=== PATIENT | male | born 1945 | race African-American/Black ===

== ENCOUNTER 2017-06-06 19:49 | Inpatient (IN) | payer BC ==
[~2017-06-06] VITALS: Ht 185.4 cm; Wt 84.1 kg
--- NOTE | ~2017-06-06 | CN ---
Consultation Report [facility] [address] [place]. [address] NAME: HUMBERTO ELLIS JR : 43 STATUS : ADM Ivan PAT#: [id number] AGE: 71 ADM/REG DATE : 06/06/17 MR#: [id number] REPORT SERV DATE: 06/07/17 DICTATED BY: DATE: REPORT STATUS : Draft TRANSCRIBED BY: MODL DATE: 06/07/17 NEUROLOGY CONSULTATION DATE OF CONSULTATION: 06/07/2017 REASON FOR CONSULTATION: Gait abnormality HOSPITALIST: DONNELL Park HISTORY OF PRESENT ILLNESS: The patient is a 71-year-old male, who had a recent fall, where he fractured the fifth and sixth left rib from falling. He has a history of alcoholism and pituitary mass. His most recent fall was attributed to his alcohol intoxication. Apparently, he fell and fractured his left 6th and 7th rib. He was brought to [facility]'s emergency department where he was evaluated and treated. He was sent home after the evaluation. The patient came back to the hospital because of extreme fatigue and weakness. He states that his legs tend to give out and he cannot stand backup. When questioned more extensively, the patient mentions that he has been told he had Parkinson's disease. According to the patient, he has never been placed on medication therapy. He does have significant bilateral tremor, but states it is not disabling. What is most disabling for him is his fatigue, weakness, and inability to ambulate. Over the last five days, the patient has become so weak that he cannot get around. PAST MEDICAL HISTORY: Alcohol abuse, pituitary tumor, chronic pancreatitis, diabetes mellitus type 2, prostate cancer, BPH, GERD, orthostasis, GI bleed from AVM. PAST SURGICAL HISTORY: None. HOME MEDICATION LIST: Hydrocodone 10/325 mg one tab every four hours p.r.n. pain, NovoLog insulin per sliding scale, Lantus insulin 15 units subcu twice a day, Prilosec 40 mg daily, Flomax 0.4 mg every afternoon, Maxzide 37.5/25 mg daily. ALLERGIES: NONE. SOCIAL HISTORY: The patient is . He has three grown children. He is retired from the [employer]. He worked in the [employer] department for 33 years. He does not smoke. He claims that he will occasionally drink alcohol and denies use of recreational drugs. FAMILY HISTORY: The patient's mother from diabetes. His father from hypertension and throat cancer. He has one sister and two brothers who have "passed." REVIEW OF SYSTEMS: Please refer to HPI. Consultation Report [facility] [address] [place]. [address] NAME: HUMBERTO ELLIS JR : 43 STATUS : ADM Ivan PAT#: [id number] AGE: 71 ADM/REG DATE : 06/06/17 MR#: [id number] REPORT SERV DATE: 06/07/17 DICTATED BY: DATE: REPORT STATUS : Draft TRANSCRIBED BY: MODL DATE: 06/07/17 PHYSICAL EXAMINATION: GENERAL: The patient is a 71-year-old male, who stands 6 feet 1 inch tall and weighs 185 pounds. NEUROLOGIC: He is alert. He is oriented x4. He is pleasant. He does communicate appropriately. His voice is hypophonic. He has diminished blink response (he actually blinked 2 times in 1 minute). He has masked facies, bradykinesia, and bradyphrenia. He has significant rest tremor bilaterally, mild rigidity mainly in the wrist. No cogwheeling. Dysdiadochokinesis noted bilaterally. He was able to draw an Archimedes spiral, with very minimal tremor noted in the tracing. His tremor is a rest tremor,it will go away with movement. Cranial nerves 2 through 12 are intact. There is no deficit. Iqovxk-on-ujdz, no ataxia. Nfek-vg-bzsy, no ataxia. There is no pronator drift. Upper extremity strength is 4/5 bilaterally. Upper DTRs are minimal at best. No reported sensory deficits when checking the upper extremities. Lower extremities strength is 4/5 bilaterally. No reported sensory deficits. Lower DTRs are 1+ bilaterally. Downgoing toes. The patient did not get up to ambulate. He is a full assist. NECK: No carotid bruits, JVD, or thyromegaly. CHEST: Lung sounds clear. Diminished in the bases. No cough. CARDIAC: Regular rate and rhythm. ABDOMEN: Soft and nontender. Active bowel sounds x4 quadrants. LABORATORY DATA: CBC is normal. BMP relatively normal. Creatinine 1.46 and glucose is 153. TSH 0.74. Troponin negative x2. Urinalysis is negative for UTI. Lactate 2.9. Chest x- ray, no acute changes. X-ray with rib detail shows subacute fracture in the left 6th and 7th ribs. CT of the brain, pituitary (sellar) mass noted. No mass effect. No changes. ASSESSMENT/PLAN: 1. Parkinson's disease. The patient will be started on Sinemet 25/100 mg a half tablet t.i.d. with food without protein. Tomorrow, his dose will be increased to one tablet t.i.d. if tolerated. PT, TO, and Speech Therapy will be consulted and the patient will follow up with Neurology on an outpatient basis. 2. Pituitary tumor. The patient's tumor is relatively unchanged when comparing imaging results. The patient has no visual changes and does not complain of headache. Consequently, the patient will follow up with Neurosurgery on an outpatient basis. 3. Alcohol abuse. The patient education was done on cessation of alcohol consumption. He will be placed on thiamine IV and folate and be placed on the CIWA protocol. 4. The patient will have C-spine imaging per MRI to rule out cervical stenosis, which could also contribute to gait abnormalities. Thank you again for including us in consultation. We will continue to follow with you. Dr. Joann Munguia my collaborating physician has been made aware of the patient's case and plan of care. DICTATED BY: Verenice Sparks DNP, ACNP- PUNEET/MINESH Consultation Report [address] [address] NAME: HUMBERTO ELLIS JR : 43 STATUS : ADM Ivan PAT#: [id number] AGE: 71 ADM/REG DATE : 06/06/17 MR#: [id number] REPORT SERV DATE: 06/07/17 DICTATED BY: DATE: REPORT STATUS : Draft TRANSCRIBED BY: MINESH DATE: 06/07/17 Nile Munguia MD / [id number] CC: MD Alcon Springer M.D.
--- NOTE | ~2017-06-06 | HP ---
History And Physical [facility] [address] [place]. [address] NAME: HUMBERTO FISHER JR : 43 STATUS : ADM Ivan PAT#: [id number] AGE: 71 ADM/REG DATE : 06/06/17 MR#: [id number] REPORT SERV DATE: 06/07/17 DICTATED BY: CHACE GALAVIZ DATE: 06/07/17 REPORT STATUS : Draft TRANSCRIBED BY: MODL DATE: 06/07/17 DATE OF ADMISSION: 06/06/2017 CHIEF COMPLAINT: Generalized weakness and inability to walk. HISTORY OF PRESENT ILLNESS: This is a 71-year-old male with a history of recent fracture of the ribs after he fell down subsequent to taking too much alcohol, history of pituitary mass, chronic pancreatitis and diabetes who presents to the emergency room at [facility] with the above-mentioned complaint. History is obtained from the patient and reviewing data available on the [employer] System. According to Mr. Fisher, he had been in his usual state of health until recently when he fell down when he was intoxicated about five days ago. He presented to the emergency room here, workup was done, and the patient was subsequently discharged home. At that time, a CT scan of his head was not performed. CT scan of his chest and chest x-ray showed fracture of the ribs 6 and 7 on the left chest. There was no pneumothorax. The patient returned home, and since then, he says he has become quite lethargic and has overall generalized weakness. This has become so significant that he is unable to even stand up or walk a few feet. He admits that this is something new and he had no such debilitation prior to his fall. In the emergency room, initial workup revealed a normal sinus rhythm on the EKG. Chest x- ray showed the fractures, but otherwise, unremarkable. There was no pneumothorax. His lactate was 2.9 and he had some acute kidney injury as well. Hospitalist Service is asked to admit him for further evaluation and treatment as he is unable to stand up. At the time of my evaluation, he denied any chest pain or palpitations. He had no orthopnea. He denied any cough, hemoptysis, night sweats, or weight loss. He has not actually had a fall since his prior fall five days. He has not had any fevers, chills, nausea, vomiting, diarrhea, hematemesis, hematochezia, or hematuria. No other history of recent travel or exposures other than those mentioned above. PAST MEDICAL HISTORY: His past medical history is significant for history of pituitary mass, chronic pancreatitis, diabetes mellitus, history of prostate cancer, and gastroesophageal reflux disease. He also has a recent fall and rib fractures as mentioned above. SOCIAL HISTORY: He does not smoke. He states he does not drink on a regular basis, only occasionally. He denied any recreational drug use. FAMILY HISTORY: Noncontributory. MEDICATIONS: His medications at home were reviewed by me in the chart today and reordered by me. REVIEW OF SYSTEMS: As in history of present illness. All other systems were reviewed in detail and quite History And Physical [address] [address] NAME: HUMBERTO FISHER JR : 43 STATUS : ADM Ivan PAT#: [id number] AGE: 71 ADM/REG DATE : 06/06/17 MR#: [id number] REPORT SERV DATE: 06/07/17 DICTATED BY: CHACE GALAVIZ DATE: 06/07/17 REPORT STATUS : Draft TRANSCRIBED BY: MINESH DATE: 06/07/17 unremarkable. PHYSICAL EXAMINATION: GENERAL: This is a pleasant, 71-year-old, not in any acute distress. He is alert, awake, oriented to time, place, and person. HEENT: His head is atraumatic and normocephalic. His pupils are equal, reacting to light and accommodating. External ocular muscles are intact. Membranes are moist and pink. Sclerae are nonicteric. NECK: Supple with no jugular venous distention, lymphadenopathy, or thyromegaly. LUNGS: Clear to auscultation with no wheezes, rubs, or crackles. HEART: Heart sounds were regular with no murmurs, rubs, or gallops. ABDOMEN: Soft and nontender. Bowel sounds are present. EXTREMITIES: Showed no cyanosis, clubbing, or edema. NEUROLOGIC: Grossly intact. He had tremor of Parkinson's, otherwise, neuro exam was quite unremarkable. He is able to move all four extremities. VITAL SIGNS: His temperature today was 98.3, pulse 84, respirations 18 a minute, blood pressure was 136/72, and oxygen saturations were 97% breathing 2 liters of oxygen via nasal cannula. LABORATORY DATA: Reviewed on the [employer] System showed a sodium of 138, potassium 3.7, chloride 100, CO2 of 27, BUN was 18 with a creatinine of 1.67, which is up from his baseline. His blood glucose was 171. Alkaline phosphatase, AST, and ALT were within normal limits. Troponin was 0.02. Lactate was 2.9 today, it has come down from 5.8, which was in October of 2016. He always has an elevated lactate. Initially, it was thought to be from metformin. However, he is currently not on metformin. CBC showed a white blood cell count of 4700, hemoglobin was 11.6, hematocrit 35.4, and platelet count was 202,000. His prothrombin time was 14.6 with an INR of 1.2, and urinalysis was grossly unremarkable. Films of the chest x-ray were reviewed by me on the PACS today and interpreted by me. Per my interpretation, the lung calvo were clear without any lobar consolidations or pleural effusions. There is prior fracture of the ribs 6 and 7 on the left side. There is no pneumothorax on today's film. Today's, alcohol level was less than 10. A 12-lead EKG done in the emergency room was reviewed and interpreted by me. There is normal sinus rhythm at a rate of [address] elevations. IMPRESSION: 1. Generalized weakness. 2. Gait abnormality. 3. History of recent fall with rib fracture with fracture of the ribs six and seven on the left chest. 4. Acute kidney injury. 5. Pituitary mass. 6. Chronic pancreatitis. 7. Diabetes mellitus, insulin dependent. PLAN: We will admit Mr. Fisher to the cardiac telemetry unit for a 24-hour observation period. We will get a CT scan of his brain tonight to rule out any intracranial injury that he might have sustained secondary to the fall. His current symptoms may be multifactorial, History And Physical [address] [address] NAME: HUMBERTO FISHER JR : 43 STATUS : ADM Ivan PAT#: [id number] AGE: 71 ADM/REG DATE : 06/06/17 MR#: [id number] REPORT SERV DATE: 06/07/17 DICTATED BY: CHACE GALAVIZ DATE: 06/07/17 REPORT STATUS : Draft TRANSCRIBED BY: MINESH DATE: 06/07/17 but we will go ahead and check his TSH and cortisol levels at this time. We will also get Neurology to see him in the morning. We will also get an echocardiogram to rule out any cardiac contusions that he might have suffered. His lactate has been trending down, but we will keep an eye on it, he has not been on metformin since his discharge from here last time. We will also start him on IV fluids for volume replacement along with multivitamins given intravenously. We will place him on unfractionated heparin for DVT prophylaxis for now. I have discussed the above plans with the patient. His questions were answered, and he is agreeable to the above recommendations. /MINESH Chace Galaviz M.D. / [id number] CC: Naresh Bean MD
--- NOTE | ~2017-06-06 | DS ---
Discharge Summary [facility] [address] [place]. [address] NAME: HUMBERTO FISHER JR : 43 STATUS : DIS IN PAT#: [id number] AGE: 71 ADM/REG DATE : 06/06/17 MR#: [id number] REPORT SERV DATE: 06/10/17 DICTATED BY: BRI VASQUZE DATE: 06/09/17 REPORT STATUS : Draft TRANSCRIBED BY: MINESH DATE: 06/09/17 ADMISSION DATE: 06/06/2017 DISCHARGE DATE: 06/09/2017 DIAGNOSES: 1. Gait abnormality secondary to Parkinson's, improved. 2. Generalized weakness, improved. 3. Parkinson's disease. 4. Rib fracture of the left chest at 6 and 7. 5. Acute kidney injury, resolved. 6. Chronic pituitary mass. 7. History of type 2 diabetes. 8. History of alcohol usage. CONSULTANTS: Neurologist, Dr. Strickland. HOSPITALIST: Dr. Chace Patton; Dr. Alejandro Lewis; Gisell Duran, nurse practitioner with Alejandro Lewis; and Dr. Vasquez. IMAGING: CT of the brain without contrast with a sellar mass identified on prior CT and prior MRI, no acute abnormality. Echocardiogram, ejection fraction of 55%, with normal diastolic function. Normal RV size and systolic function. No significant valve disease, per Cardiology, agreed with Dr. Francine Bobo. MRI/MRA of the brain and neck showing minimal atrophy and chronic white matter ischemic changes. Minimal paranasal sinus mucosal thickening. Otherwise, negative MRI of the brain. 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 The intracranial MRA study shows no high-grade stenosis nor vessel cut off. Normal intracranial MRA. 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 Minimal degenerative changes present at C5-C6. DISCHARGE MEDICATIONS: 1. Sinemet 25/100 mg one tab p.o. daily at 8 a.m., 12 noon, 4 p.m., and 8 p.m. 2. Flonase one spray in each nostril b.i.d. p.r.n. 3. Level 2 subcutaneous sliding scale insulin per home dose, and home dose of glargine 15 units subcu b.i.d. p.r.n. when blood sugar is greater than 200, per home dose. 4. Multivitamin p.o. daily. 5. Flomax 0.4 mg p.o. q. afternoon. 6. Prilosec 40 mg p.o. daily. 7. Tylenol 500 mg p.o. q.6 hours p.r.n. FOLLOWUP: Discharge Summary [facility] [address] [place]. [address] NAME: HUMBERTO FISHER JR : 43 STATUS : DIS IN PAT#: [id number] AGE: 71 ADM/REG DATE : 06/06/17 MR#: [id number] REPORT SERV DATE: 06/10/17 DICTATED BY: BRI VASQUEZ DATE: 06/09/17 REPORT STATUS : Draft TRANSCRIBED BY: MINESH DATE: 06/09/17 1. The patient is to have an out patient Neurology with [facility] follow up in three to four weeks, per Neurology recommendations. Also, Neurology recommends to follow up with Neurosurgery as an outpatient. 2. The patient should follow up with the primary care physician in one to two weeks and to follow up with multimedia educational specialist as a new patient with Dr. 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 HOSPITAL COURSE: Please see H and P dictated by Dr. Chace Patton. This is a 71-year-old male with a past medical history of the pituitary mass and history of pancreatitis and diabetes and also per chart history of alcohol usage/abuse, presented with generalized weakness and gait abnormality. The patient was seen in the ER. He denied any chest pain. No weight loss. No hemoptysis. No cough. The patient has had a fall approximately five days prior to his presentation to [facility] ER and admitted to the hospital with generalized weakness and gait abnormality. Also, found to have rib fractures on the left side at the 6 and 7 and some acute kidney injury. The patient was admitted to the hospital, treated for acute kidney injury, which also resolved. Seen by Neurology and seen by neurologist, Dr. Strickland and her nurse practitioner, Verenice Sparks. The patient was ruled out for acute CVA with a negative MRI, but did have findings of chronic pituitary mass that was found to be large, and the patient was aware of this and stated he did see a specialist before for this as an outpatient and was told that nothing needed to be performed, however, with MRI findings of a large pituitary mass, neurologist recommended for him to follow up in the Neurosurgery Clinic for followup. Also, the neurologist ordered a MRI of the cervical spine that found some mild spondylitic mass-effect on the right side of the cord, but nothing acute, however, the patient was referred to see a multimedia educational specialist as an outpatient. The patient also was seen by Physical Therapy, noted to be ambulating 200 feet with Physical Therapy and Physical Therapy recommended for the patient to follow up in an outpatient physical therapy Clinic for his Parkinson's. He was seen by Neurology and diagnosed with Parkinson's and placed on Sinemet with improvement of his symptoms and an improvement of his ambulation/gait. The patient was deemed stable for discharge and also approved for discharge by Neurology. Neurology signed off, recommended for the patient to follow up in clinic as an outpatient. The patient was initially seen by Dr. Chace Patton and then Dr. Alejandro Lewis with nurse practitioner, Gisell Duran. I attended the care for Mr. Fisher initiating on 05/08/2017. The patient had improved status and also was educated on alcohol usage cessation. The patient also was informed to follow up with his primary care, Dr. Alcon Barriga, in one week. Also, the patient's , name is Phillip, also was updated on all the patient's management and recommendations and is well aware and updated and will make sure the patient follows up with his primary care as well and recommended specialist. THIEN/MODL Bri Vasquez M.D. / [id number] Discharge Summary [address] [place] [address] NAME: HUMBERTO FISHER JR : 43 STATUS : DIS IN PAT#: [id number] AGE: 71 ADM/REG DATE : 06/06/17 MR#: [id number] REPORT SERV DATE: 06/10/17 DICTATED BY: BRI VASQUEZ DATE: 06/09/17 REPORT STATUS : Draft TRANSCRIBED BY: MINESH DATE: 06/09/17 CC: Regi Parish M.[facility]. [facility]
[~2017-06-06 19:49] MED LIST: ACIPHEX; AMARYL1 MG PO; B1100 PO; CREON 10 OR; DSS PO; FLOMAX4 PO; FOLIC PO; FORTAMET500 MG PO; GLUCPH PO; Glucophage PO; LANTUS SC; LORTAB10 PO; LUPRON2 WEEK IM; METFORMIN 500MG; NORV10 PO; NOVOLOG; NOVOLOG SC; NOVOPEN SC; OMNICEF300 PO; PRILOSEC40 MG PO; PROAMAT5 PO; UNABLE TO RECALL; ZYRTEC ALLGY10 MG PO; [UNRECOGNIZED DRUG - REMARK]
[2017-06-06 21:20] LABS: BASOPHILS 0.2 %; BASOPHILS ABSOLUTE 0.01 10/3/uL (0.0-0.16); EOSINOPHILS 0.6 %; EOSINOPHILS ABSOLUTE 0.03 10/3/uL (0.0-0.53); HEMOGLOBIN 11.6 g/dL (13.6-17.8); IMMATURE GRANULOCYTES 0.2 %; IMMATURE GRANULOCYTES ABSOLUTE 0.01 10/3/uL (0.0-0.11); LYMPHOCYTES 23.2 %; LYMPHOCYTES ABSOLUTE 1.08 10/3/uL (0.67-4.30); MEAN CORPUS HGB CONC 32.8 g/dL (32.0-36.0); MEAN CORPUSCULAR HEMOGLOB 28.7 pg (26.0-34.0); MEAN PLATELET VOLUME 9.7 fL (9.2-13.0); MONOCYTES 11.6 %; MONOCYTES ABSOLUTE 0.54 10/3/uL (0.21-1.20); NEUTROPHILS 64.2 %; NEUTROPHILS ABSOLUTE 2.99 10/3/uL (2.02-8.40); RED CELL COUNT 4.04 10/6/uL (4.7-6.1); WHITE BLOOD CELLS 4.7 10/3/uL (4.5-10.5)
[2017-06-06 21:21] LABS: HEMATOCRIT 35.4 % (40.0-51.0); MANUAL DIFF NO %; MEAN CORPUSCULAR VOLUME 87.6 fL (80-100); PLATELET COUNT 202 10/3/uL (150-400); RBC DISTRIBUTION WIDTH 18.5 % (12.0-16.0)
[2017-06-06 21:28] LABS: INTERNATIONAL NORMAL RATI 1.2 UNITS (-); PROTIME (NOT ORD) 14.6 SEC (12.0-14.5)
[2017-06-06 21:29] LABS: PARTIAL THROMBO TIME 30.9 SEC (22.5-37.2)
[2017-06-06 21:35] LABS: LACTATE 2.9 MMOL/L (0.3-2.4)
[2017-06-06] MEDS ORDERED: FLOMAX4 PO (21:38)
[2017-06-06] MEDS ORDERED: PRILOSEC40 MG PO (21:38)
[2017-06-06] MEDS ORDERED: NOVOLOG SC (21:39)
[2017-06-06] MEDS ORDERED: LANTUS SC (21:39)
[2017-06-06] MEDS ORDERED: NORCO1 TAB PO (21:39)
[2017-06-06] MEDS ORDERED: MAX25 PO (21:39)
[2017-06-06 21:40] LABS: A/G RATIO 0.9 (0.7-1.9); ALBUMIN 4.2 G/DL (3.5-5.0); ALKALINE PHOSPHATASE 64 U/L (45-117); BUN (BLOOD UREA NITROGEN) 18 MG/DL (6-23); CALCIUM, SERUM 9.5 MG/DL (8.5-10.4); CHLORIDE, SERUM 100 MMOL/L (96-112); CO2 (CARBON DIOXIDE) 27 MMOL/L (24-34); CREATININE 1.67 MG/DL (0.70-1.30); GFR AFRICAN AMERICAN 47 ML/MIN (>=60); GFR NON AFRICAN AMERICAN 40 ML/MIN (>=60); GLOBULIN 4.6 G/DL (2.5-4.1); GLUCOSE, SERUM 171 MG/DL (60-99); POTASSIUM, SERUM 3.7 MMOL/L (3.5-5.3); SGOT(AST) 40 U/L (5-40); SGPT(ALT) 38 U/L (5-65); SODIUM, SERUM 138 MMOL/L (135-148); TOTAL BILIRUBIN 0.9 MG/DL (0-1.2); TOTAL PROTEIN 8.8 G/DL (6.0-8.5); TROPONIN I <0.02 NG/ML (<0.05)
[2017-06-06 22:47] LABS: ASCORBIC ACID (UR NOT ORDER) NEG (NEG); BILIRUBIN, URINE NEGATIVE (NEG); KETONE, URINE NEGATIVE (NEG); LEUKOCYTE ESTERASE(NOT OR NEG (NEG); NITRITE (URINE) NEG (NEG); WBC (NOT ORDERED) (RFLEX) < 1 (0-5)
[2017-06-07 07:11] LABS: BASOPHILS 0.2 %; BASOPHILS ABSOLUTE 0.01 10/3/uL (0.0-0.16); EOSINOPHILS 0.6 %; EOSINOPHILS ABSOLUTE 0.03 10/3/uL (0.0-0.53); HEMATOCRIT 33.8 % (40.0-51.0); HEMOGLOBIN 10.9 g/dL (13.6-17.8); IMMATURE GRANULOCYTES 0.2 %; IMMATURE GRANULOCYTES ABSOLUTE 0.01 10/3/uL (0.0-0.11); LYMPHOCYTES ABSOLUTE 0.98 10/3/uL (0.67-4.30); MANUAL DIFF NO %; MEAN CORPUS HGB CONC 32.2 g/dL (32.0-36.0); MEAN CORPUSCULAR HEMOGLOB 28.2 pg (26.0-34.0); MEAN CORPUSCULAR VOLUME 87.3 fL (80-100); MEAN PLATELET VOLUME 9.3 fL (9.2-13.0); MONOCYTES 12.2 %; MONOCYTES ABSOLUTE 0.63 10/3/uL (0.21-1.20); NEUTROPHILS 67.8 %; PLATELET COUNT 191 10/3/uL (150-400); RBC DISTRIBUTION WIDTH 18.9 % (12.0-16.0); RED CELL COUNT 3.87 10/6/uL (4.7-6.1); WHITE BLOOD CELLS 5.2 10/3/uL (4.5-10.5)
[2017-06-07 07:31] LABS: BUN (BLOOD UREA NITROGEN) 19 MG/DL (6-23); CALCIUM, SERUM 8.9 MG/DL (8.5-10.4); CHLORIDE, SERUM 102 MMOL/L (96-112); CO2 (CARBON DIOXIDE) 27 MMOL/L (24-34); CREATININE 1.46 MG/DL (0.70-1.30); GFR AFRICAN AMERICAN 55 ML/MIN (>=60); GFR NON AFRICAN AMERICAN 47 ML/MIN (>=60); GLUCOSE, SERUM 153 MG/DL (60-99); PHOSPHORUS, SERUM 2.7 MG/DL (2.5-4.5); POTASSIUM, SERUM 3.6 MMOL/L (3.5-5.3); SODIUM, SERUM 137 MMOL/L (135-148)
[2017-06-07 11:12] LABS: TROPONIN I <0.02 NG/ML (<0.05)
[2017-06-07 14:10] LABS: ALBUMIN 3.8 G/DL (3.5-5.0); DIRECT BILIRUBIN 0.3 MG/DL (0.0-0.4); FOLATE 18.7 NG/ML (>5.2); INDIRECT BILIRUBIN(NOT ORDER) 0.7 MG/DL (0.1-0.9)
[2017-06-08 04:04] LABS: ASCORBIC ACID (UR NOT ORDER) NEG (NEG); BILIRUBIN, URINE NEGATIVE (NEG); KETONE, URINE NEGATIVE (NEG); LEUKOCYTE ESTERASE(NOT OR NEG (NEG); WBC (NOT ORDERED) (RFLEX) 1 (0-5)
[2017-06-08 05:37] LABS: BUN (BLOOD UREA NITROGEN) 16 MG/DL (6-23); CALCIUM, SERUM 8.9 MG/DL (8.5-10.4); CHLORIDE, SERUM 104 MMOL/L (96-112); CO2 (CARBON DIOXIDE) 25 MMOL/L (24-34); CREATININE 1.09 MG/DL (0.70-1.30); GFR AFRICAN AMERICAN 78 ML/MIN (>=60); GFR NON AFRICAN AMERICAN 67 ML/MIN (>=60); GLUCOSE, SERUM 142 MG/DL (60-99); POTASSIUM, SERUM 3.6 MMOL/L (3.5-5.3); SODIUM, SERUM 137 MMOL/L (135-148)
[2017-06-08 05:39] LABS: BASOPHILS 0.3 %; BASOPHILS ABSOLUTE 0.01 10/3/uL (0.0-0.16); EOSINOPHILS 2.4 %; EOSINOPHILS ABSOLUTE 0.09 10/3/uL (0.0-0.53); HEMOGLOBIN 9.9 g/dL (13.6-17.8); LYMPHOCYTES ABSOLUTE 1.44 10/3/uL (0.67-4.30); MANUAL DIFF NO %; MEAN CORPUS HGB CONC 31.9 g/dL (32.0-36.0); MEAN CORPUSCULAR HEMOGLOB 28.3 pg (26.0-34.0); MEAN CORPUSCULAR VOLUME 88.6 fL (80-100); MEAN PLATELET VOLUME 10.2 fL (9.2-13.0); MONOCYTES 13.3 %; MONOCYTES ABSOLUTE 0.49 10/3/uL (0.21-1.20); NEUTROPHILS ABSOLUTE 1.66 10/3/uL (2.02-8.40); PLATELET COUNT 194 10/3/uL (150-400); RBC DISTRIBUTION WIDTH 18.9 % (12.0-16.0); WHITE BLOOD CELLS 3.7 10/3/uL (4.5-10.5)
[2017-06-09] MEDS ORDERED: THERGRANM PO (13:38)
[2017-06-09] MEDS ORDERED: SIN25 (13:39)
[2017-06-09] MEDS ORDERED: ACET500CAP PO (13:40)
[2017-06-09] MEDS ORDERED: FLONASE NAS (13:41)
== END 2017-06-09 17:09 | disposition home or self-care (01) | DRG 57 ==
LOC: ENRESERV → ENRESERVDT → ENRESERVTM → ER 19:49 → CDU1 23:59 → CDU2 23:59 → 1SO 23:59 → CDU2 06-07 00:29 → 1SO 06-07 15:11
PROVIDERS: Internal Medicine; Internal Medicine Pulmonary Disease; Nurse Practitioner; Nurse Practitioner Acute Care
DX: G20 Parkinson's disease (principal); N17.9 Acute kidney failure, unspecified; K86.1 Other chronic pancreatitis; E11.9 Type 2 diabetes mellitus without complications; Z79.84 Long term (current) use of oral hypoglycemic drugs; D49.7 Neoplasm of unspecified behavior of endocrine glands and other parts of nervous system; F10.10 Alcohol abuse, uncomplicated; S22.42XD Multiple fractures of ribs, left side, subsequent encounter for fracture with routine healing; K21.9 Gastro-esophageal reflux disease without esophagitis; Z85.46 Personal history of malignant neoplasm of prostate; Z91.81 History of falling
CPT/HCPCS: 70450; 70544; 70548; 70551; 71010; 72141; 80048; 80053; 80061; 80076; 81001; 82140; 82533; 82607; 82746; 82962; 83036; 83605; 83735; 84100; 84443; 84484; 85025; 85610; 85730; 87040; 87070; 87205; 93005; 93306; 97161-GP; 99285; A9270-GY; A9577; J3411